=== PATIENT | female | born 1965 | race Caucasian/White ===

== ENCOUNTER 2024-05-23 09:52 | Outpatient (CLI) | payer OTHER | END 2024-05-23 09:53 | disposition home or self-care (01) | LOC: ULT 09:52 | PROVIDERS: ATTEND Physician Assistant Medical | DX: K76.89 Other specified diseases of liver (principal); R19.7 Diarrhea, unspecified; Z86.010 Personal history of colon polyps | CPT/HCPCS: 76705 ==